=== PATIENT | female | born 1995 | race Caucasian/White ===

== ENCOUNTER 2021-06-13 11:51 | Emergency (ER) | payer OTHER ==
[~2021-06-13] VITALS: Ht 162.6 cm; Wt 53.3 kg
[2021-06-13] MEDS ORDERED: IBUPROFEN 200 MG TABLET. PO ONE (13:45)
--- NOTE | 2021-06-13 13:46 | PHYS DOC ---
General Adult EDM: Chief Complaint: ANKLE PROBLEM HPI: HPI: Patient is a 26 year old female who presents with right ankle pain. Patient states on Sunday she rolled her ankle in a ditch. Full range of motion and sensation intact. Patient is able to ambulate and bear weight, but causes pain. Patient states that she iced her ankle yesterday which helped with the swelling. Patient denies taking any medication for pain at home. Denies all medical history. Review of Systems: Review of Systems: ROS At least 10 ROS systems have been reviewed and are negative except as documented in the HPI. General: Negative except as outlined in HPI above. Skin: Negative except as outlined in HPI above. HEENT: Negative except as outlined in HPI above. Neck: Negative except as outlined in HPI above. Respiratory: Negative except as outlined in HPI above.. Cardiovascular: Negative except as outlined in HPI above. Abdomen: Negative except as outlined in HPI above. : Negative except as outlined in HPI above. Back/MSK: Negative except as outlined in HPI above. Neuro: Negative except as outlined in HPI above. Psych: Negative except as outlined in HPI above. Heart Score: C/O Chest Pain: No Risk Factors: Risk Factors: DM, Current or recent (<one month) smoker, HTN, HLP, family history of CAD, obesity. Risk Scores: Score 0 - 3: 2.5% MACE over next 6 weeks - Discharge Home Score 4 - 6: 20.3% MACE over next 6 weeks - Admit for Clinical Observation Score 7 - 10: 72.7% MACE over next 6 weeks - Early Invasive Strategies Physical Exam: PE: Constitutional: Well developed, well nourished, no acute distress, non-toxic appearance. [] HENT: Normocephalic, atraumatic, bilateral external ears normal, oropharynx moist, no oral exudates, nose normal. [] Eyes: PERRLA, EOMI, conjunctiva normal, no discharge. [] Neck: Normal range of motion, no tenderness, supple, no stridor. [] Cardiovascular:Heart rate regular rhythm, no murmur [] Lungs & Thorax: Bilateral breath sounds clear to auscultation [] Abdomen: Bowel sounds normal, soft, no tenderness, no masses, no pulsatile masses. [] Skin: Warm, dry, no erythema, no rash. [] Back: No tenderness, no CVA tenderness. [] Extremities: Right ankleswelling and tenderness, pedal pulses intact. No cya nosis, no clubbing, ROM intact Neurologic: Alert and oriented X 3, normal motor function, normal sensory fu nction, no focal deficits noted. [] Psychologic: Affect normal, judgement normal, mood normal. [] Current Patient Data: Labs: Laboratory Tests Test 06/13/21 13:11 POC Urine HCG, Qualitative Hcg negative (Negative) EKG: EKG: [] Radiology/Procedures: Radiology/Procedures: []Study: 1. XR RT TIBIA+FIBULA 2. XR EXAM OF ANKLE_RIGHT 3VIEWS Indication: Pain. Fall. Comparison: None. Findings: Right tibia/fibula: No acute fracture. Mineralization is within normal limits. No significant arthrosis at the partially assessed knee joint. No knee joint effusion is apparent. Unremarkable soft tissues. Right ankle: Avulsion fracture fragment off the tip the lateral malleolus as seen on the AP oblique view and measuring 13 mm transverse. No fracture is identified elsewhere at the ankle or involving the partially assessed foot. Excrescence at the dorsum of the navicular adjacent to the talonavicular joint and exhibits features of chronicity. Unremarkable talar dome. Alignment is within normal limits considering the absence of weightbearing. Edematous soft tissues primarily at the lateral ankle. Impression: Right tibia/fibula and right ankle: Acute avulsion fracture off the tip of the lateral malleolus with the fracture fragment measuring approximately 13 mm transverse. No fracture identified elsewhere. Ankle alignment is within normal limits. Electronically signed by: ROSALIA ROCHE MD (06/13/2021 2:07 PM) [facility] Course & Med Decision Making: Course & Med Decision Making Pertinent Labs and Imaging studies reviewed. (See chart for details) Patient is a 26-year-old female who presents with right ankle pain. X-ray performed showed acute avulsion fracture off the tip of the lateral malleolus. Pain was treated in the ED. Patient placed in splint, gave crutch training, instructed no weightbearing. Neuro was intact pre and post splint placement. Patient tolerated procedure well. Patient sent home with hydrocodone for pain. Advised patient she could take ibuprofen for breakthrough pain. Follow-up with Ortho in 5 to 7 days. Educated on RICE. Patient voiced understanding and agreement with plan. Dragon Disclaimer: Darcy Disclaimer: This electronic medical record was generated, in whole or in part, using a voice recognition dictation system. Departure Departure Impression: Primary Impression: Acute right ankle pain Disposition: HOME / SELF CARE / HOMELESS Condition: STABLE Referrals: NO PCP (PCP) Patient Instructions: Ankle Fracture, [id number] Additional Instructions: You are seen in the emergency room for right ankle pain after a fall. Your right ankle was fractured. You were placed in a splint and given crutch training. Sending you home with hydrocodone for pain control. You can use ibuprofen as well for breakthrough pain. Please call Ortho today or tomorrow make a follow-up appointment for 5 to 7 days for further management. Rest, use ice, elevate to help with swelling and pain. I have included orthopedics phone number below. Return to the emergency room if you have any worsening symptoms or concerns. Orthopedics [address] [facility], [address] [place] [address] EMERGENCY DEPARTMENT GENERAL DISCHARGE INSTRUCTIONS Thank you for coming to [facility] Emergency Department (ED) today and trusting us with you care. We trust that you had a positive experience in our Emergency Department. If you wish to speak to the department management, you may call the Director at [phone]. YOUR FOLLOW UP INSTRUCTIONS ARE FOLLOWS: 1. Do you have a private Doctor? If you do not have a private doctor, please ask for a resource list of physicians or clinics that may be able to assist you with follow up care. 2. The Emergency Physicain has interpreted your x-rays. The X-Ray specialist will also review them. If there is a change in the findings, you will be notified in 48 hours when at all possible. 3. A lab test or culture has been done, your results will be reviewed and you will be notified if you need a change in treatment. ADDITIONAL INSTRUCTIONS AND INFORMATION: 1. Your care today has been supervised by a physician who is specially trained in emergency care. Many problems require more than one evaluation for a complete diagnosis and treatment. We recommend that you schedule your follow up appointment as recommended to ensure complete treatment of you illness or injury. If you are unable to obtain follow up care and continue to have a problem, or if your condition worsens, we recommend that you return to the ED. 2. We are not able to safely determine your condition over the phone nor are we able to give sound medical advice over the phone. For these safety reasons, if you call for medical advice we will ask you to come to the ED for further evaluation. 3. If you have any questions regarding these discharge instructions please call the ED at [phone]. SAFETY INFORMATION: In the interest of safety, wellness, and injury prevention; we encourage you to wear your sealbelt, if you smoke; quite smoking, and we encourage family to use a protective helmet for bicycling and other sporting events that present an increased risk for head injury. IF YOUR SYMPTOMS WORSEN OR NEW SYMPTOMS DEVELOP, OR YOU HAVE CONCERNS ABOUT YOUR CONDITION; OR IF YOUR CONDITION WORSENS WHILE YOU ARE WAITING FOR YOUR FOLLOW UP APPOINTMEN T; EITHER CONTACT YOUR PRIMARY CARE DOCTOR, THE PHYSICIAN WHOSE NAME AND NUMBER YOU WERE GIVEN, OR RETURN TO THE ED IMMEDIATELY. TONY GAONA APRN Jun 13, 2021 13:46
--- NOTE | 2021-06-13 14:10 | RAD ---
Study: 1. XR RT TIBIA+FIBULA 2. XR EXAM OF ANKLE_RIGHT 3VIEWS Indication: Pain. Fall. Comparison: None. Findings: Right tibia/fibula: No acute fracture. Mineralization is within normal limits. No significant arthrosis at the partially assessed knee joint. No knee joint effusion is apparent. Unremarkable soft tissues. Right ankle: Avulsion fracture fragment off the tip the lateral malleolus as seen on the AP oblique view and measu ring 13 mm transverse. No fracture is identified elsewhere at the ankle or involving the partially as sessed foot. Excrescence at the dorsum of the navicular adjacent to the talonavicular joint and exhib its features of chronicity. Unremarkable talar dome. Alignment is within normal limits considering th e absence of weightbearing. Edematous soft tissues primarily at the lateral ankle. Impression: Right tibia/fibula and right ankle: Acute avulsion fracture off the tip of the lateral malleolus with the fracture fragment measuring vasyl roximately 13 mm transverse. No fracture identified elsewhere. Ankle alignment is within normal limit s. Electronically signed by: ROSALIA ROCHE MD (06/13/2021 2:07 PM) [facility]
[2021-06-13 16:09] VITALS: BP 104/65
== END 2021-06-13 16:30 | disposition home or self-care (01) ==
LOC: ER 11:51
DX: M25.571 Pain in right ankle and joints of right foot (principal); X50.9XXA Other and unspecified overexertion or strenuous movements or postures, initial encounter; Y93.89 Activity, other specified; Y92.89 Other specified places as the place of occurrence of the external cause; Y99.8 Other external cause status
CPT/HCPCS: 29515; 73590; 73610; 81025; 99285-25